=== PATIENT | female | born 1995 | race Hispanic/Latino ===

== ENCOUNTER 2018-12-20 19:42 | Emergency (ER) | payer OTHER ==
[2018-12-20] MEDS ORDERED: IPRATROPIUM/ALBUTEROL SULFATE 3 ML SOLUTION IH ONE (20:31)
[2018-12-20] MEDS ORDERED: METHYLPREDNISOLONE SOD SUCC 125MG/2ML VIAL ONE (21:27)
== END 2018-12-20 21:42 | disposition home or self-care (01) ==
LOC: EDH 19:42
DX: J20.9 Acute bronchitis, unspecified (principal); Z88.0 Allergy status to penicillin
CPT/HCPCS: 71046; 81025; 87804 ×2; 94640; 96372; 99284; J2930